=== PATIENT | male | born 1990 | race African-American/Black ===

== ENCOUNTER → 2021-05-26 | Outpatient (CLI) | payer OTHER | LOC: M OUTALCOH 09:50 | PROVIDERS: ATTEND Psychiatry & Neurology Psychiatry | DX: Z03.89 Encounter for observation for other suspected diseases and conditions ruled out (principal) ==

== ENCOUNTER 2021-05-31 13:58 | Outpatient (RCR) | payer OTHER | END 2021-06-05 | LOC: M OUTALCOH 13:58 | PROVIDERS: ATTEND Psychiatry & Neurology Psychiatry | DX: Z03.89 Encounter for observation for other suspected diseases and conditions ruled out (principal); Z72.0 Tobacco use ==